=== PATIENT | female | born 2000 | race Caucasian/White ===

== ENCOUNTER 2025-02-08 17:03 | Emergency (ER) | payer MEDICAID ==
[~2025-02-08] VITALS: Ht 167.6 cm; Wt 74.8 kg
[2025-02-08 17:53] VITALS: BP 126/72; TEMP 98.5
[2025-02-08] MEDS ORDERED: DIPH50CA4 PO (18:14)
[2025-02-08 18:38] VITALS: O2SAT 99
== END 2025-02-08 18:40 | disposition home or self-care (01) ==
LOC: ER 17:03
DX: G47.00 Insomnia, unspecified (principal); F41.9 Anxiety disorder, unspecified; F12.90 Cannabis use, unspecified, uncomplicated; Z56.6 Other physical and mental strain related to work